=== PATIENT | female | born 1955 | race Caucasian/White ===

== ENCOUNTER 2017-05-29 13:04 | Inpatient (IN) | payer MEDICAID, MEDICARE ==
[~2017-05-29] VITALS: Ht 162.6 cm; Wt 65.8 kg
[2017-05-29] MEDS ORDERED: LEVE500T20 PO (13:17)
[2017-05-29] MEDS ORDERED: OLAN5TAB30 PO (13:17)
[2017-05-29] MEDS ORDERED: CARB-35 PO (13:17)
[2017-05-29] MEDS ORDERED: TEMA7.5C2 PO (13:17)
[2017-05-29] MEDS ORDERED: ACET325T53 PO (13:17)
[2017-05-29] MEDS ORDERED: MIRT15TA7 PO (13:17)
[2017-05-29] MEDS ORDERED: MULT1TAB73 PO (13:17)
[2017-05-29] MEDS ORDERED: LORA1TAB PO (13:17)
[2017-05-29] MEDS ORDERED: HYDR-3974 PO (13:17)
[2017-05-29] MEDS ORDERED: ONDA4TAB10 PO (13:17)
[2017-05-29] MEDS ORDERED: FAMO-132 PO (13:17)
--- NOTE | 2017-05-29 13:28 | NUR ---
PT IS IN ROOM #2B. DR PALMA EVALUATED THE PT.
[2017-05-29 14:32] LABS: BASOPHILS % (AUTO) 0.5 % (0.0-2.0); EOSINOPHILS # (AUTO) 0.2 K/uL (0.0-0.7); EOSINOPHILS % (AUTO) 2.9 % (0.0-7.0); HEMATOCRIT 32.5 % (37-47); HEMOGLOBIN 10.4 G/DL (12.0-16.0); LYMPHOCYTES # (AUTO) 1.6 K/UL (0.8-4.8); LYMPHOCYTES % (AUTO) 22.2 % (20.5-51.5); MEAN CORPUSCULAR HEMOGLOBIN 24.6 UUG (27.0-31.0); MEAN CORPUSCULAR HGB CONC 32 g/dL (32.0-37.0); MEAN CORPUSCULAR VOLUME 77.1 FL (81.0-99.0); MONOCYTES # (AUTO) 0.4 K/UL (0.1-1.30); MONOCYTES % (AUTO) 5.3 % (0.0-11.0); NEUTROPHILS # (AUTO) 5.1 K/UL (1.8-8.9); NEUTROPHILS % (AUTO) 69.1 % (38.5-71.5); PLATELET COUNT (AUTO) 415 K/UL (150-450); RED BLOOD CELL COUNT(AUTO) 4.21 MIL/UL (4.2-5.4); WHITE BLOOD COUNT (AUTO) 7.3 K/UL (4.0-11.2)
[2017-05-29 14:35] LABS: CREATININE 0.6 mg/dL (0.6-1.3); POTASSIUM 4.1 mmol/L (3.5-5.1)
[2017-05-29 14:42] LABS: BILIRUBIN,TOTAL 0.4 mg/dL (0.2-1.0); TOTAL PROTEIN, SERUM 7.1 g/dL (6.4-8.2)
[2017-05-29 15:04] LABS: THYROID STIMULATING HORMONE 1.004 mIU/mL (0.358-3.740)
[2017-05-29] MEDS ORDERED: LORAZEPAM 0.5 MG TABLET PO ONE (15:30)
[2017-05-29] MEDS ORDERED: CLINDAMYCIN PHOSPHATE IV 300 MG in IV DEXTROSE 5% 100 ML IV ONE (15:47)
[2017-05-29] MEDS ORDERED: LORAZEPAM 1 MG TABLET ONE (15:47)
[2017-05-29] MEDS ORDERED: CLINDAMYCIN PHOSPHATE 600 MG/4 ML VIAL ONE (16:08)
--- NOTE | 2017-05-29 18:14 | NUR ---
DR BIRD WAS CALLED. DR HINES DX BOARD OPERATOR. WAITING FOR HIS CALL BACK.
--- NOTE | 2017-05-29 18:56 | NUR ---
DR HINES TALKED TO DR TAMEZ. PT IS GOING TO BE ADMITTED TO M/S .
--- NOTE | 2017-05-29 18:58 | NUR ---
REPORT GIVEN TO HEAVY CLEANER RN.
--- NOTE | 2017-05-29 19:10 | NUR ---
REPORT RECEIVED FROM DAYSHIFT NURSE, PT RESTING IN BED, ALERT, ORIENTED X 2-3, NO RESP DISTRESS NOTED OR REPORTED UPON ASSESSMENT... WILL MONITOR FOR SAFETY, COMFORT, AND PAIN...
--- NOTE | 2017-05-29 19:56 | NUR ---
Pt. admitted to MED SURG , under care of Dr. Pak, [place] List completed, pt is alert, oriented x 2-3, no resp distress noted or reported upon transfer assessment...
--- NOTE | 2017-05-29 20:20 | NUR ---
PT RECEIVED FROM ED VIA [employer] Y[employer]. A/OX2. PT ORIENTED TO ROOM. V/S STABLE. NO ACUTE DISTRESS NOTED. NO COMPLAINTS OF PAIN AT THIS TIME. BED ALARM SET. SAFETY MEASURES IMPLEMENTED. CALL LIGHT WITHIN REACH. WILL CONTINUE TO MONITOR.
[2017-05-29] MEDS ORDERED: TEMAZEPAM 7.5 MG CAPSULE PO PRN (22:15)
[2017-05-29] MEDS ORDERED: LORAZEPAM 1 MG TABLET PO PRN (22:15)
[2017-05-29] MEDS ORDERED: FAMOTIDINE 20 MG TABLET ONE (22:31)
[2017-05-29] MEDS ORDERED: LEVETIRACETAM 500 MG TABLET ONE (22:32)
[2017-05-29] MEDS ORDERED: HYDROCODONE/APAP 5-325MG TABLET ONE (22:32)
[2017-05-29] MEDS ORDERED: MIRTAZAPINE 15 MG TABLET ONE (22:33)
[2017-05-29] MEDS ORDERED: OLANZAPINE 5 MG TABLET ONE (22:34)
[2017-05-29] MEDS: FAMOTIDINE 20 MG TABLET PO SCH (22:35)
[2017-05-29] MEDS: OLANZAPINE 5 MG TABLET PO SCH (22:35)
[2017-05-29] MEDS: LEVETIRACETAM 500 MG TABLET PO SCH (22:36)
[2017-05-29] MEDS: HYDROCODONE/APAP 5-325MG TABLET PO PRN (22:36)
[2017-05-29] MEDS: MIRTAZAPINE 15 MG TABLET PO SCH (22:37)
[2017-05-29] MEDS: IV NS 1000 ML 1,000 ML IV PRN (23:28)
[2017-05-30 01:03] LABS: *BILIRUBIN,URIN NEGATIVE (NEGATIVE); *BLOOD, URINE Trace-lysed (NEGATIVE); *CLARITY,URINE CLOUDY (CLEAR); *COLOR,URINE YELLOW (YELLOW); *KETONES,URINE NEGATIVE (NEGATIVE); *PROTEIN,URINE 2+ (NEGATIVE); LEUKOCYTE ESTERASE ,URINE 3+ (NEGATIVE); NITRITE, URINE POSITIVE (NEGATIVE); UGLUCOSE NEGATIVE (NEGATIVE)
[2017-05-30 01:17] LABS: BACTERIA,URINE MANY /HPF (NONE SEEN); SQUAMOUS EPITHELIAL CELL,UR MODERATE /HPF (NONE SEEN); WBC,URINE TNTC /HPF (0-3)
--- NOTE | 2017-05-30 06:16 | NUR ---
END OF SHIFT NOTES. PT SLEPT INTERMITTENTLY THROUGHOUT SHIFT. V/S STABLE. NO ACUTE DISTRESS NOTED. PT COMPLAINTS OF LOWER BACK PAIN. ADMINISTERED PAIN MEDICATIONS ORDERED. PT REMAINS NPO AFTER MIDNIGHT. PRE-OP CHECKLIST COMPLETE. PT PRE-OP CLEANING PREP COMPLETE. IVF INFUSING. NEEDS ATTENDED. SAFETY MAINTAINED. CALL LIGHT WITHIN REACH.
[2017-05-30 06:27] VITALS: BP 145/74
[2017-05-30 06:30] LABS: CREATININE 0.6 mg/dL (0.6-1.3); MAGNESIUM 1.7 mg/dL (1.8-2.4); PHOSPHOROUS 3.4 mg/dL (2.5-4.9); POTASSIUM 3.5 mmol/L (3.5-5.1)
[2017-05-30 06:50] LABS: BASOPHILS % (AUTO) 0.5 % (0.0-2.0); EOSINOPHILS # (AUTO) 0.3 K/uL (0.0-0.7); EOSINOPHILS % (AUTO) 4.7 % (0.0-7.0); HEMOGLOBIN 9.5 G/DL (12.0-16.0); LYMPHOCYTES # (AUTO) 2.2 K/UL (0.8-4.8); LYMPHOCYTES % (AUTO) 30.9 % (20.5-51.5); MEAN CORPUSCULAR HEMOGLOBIN 25.1 UUG (27.0-31.0); MEAN CORPUSCULAR HGB CONC 33 g/dL (32.0-37.0); MEAN CORPUSCULAR VOLUME 77.1 FL (81.0-99.0); MONOCYTES # (AUTO) 0.5 K/UL (0.1-1.30); MONOCYTES % (AUTO) 7.3 % (0.0-11.0); NEUTROPHILS # (AUTO) 4.3 K/UL (1.8-8.9); NEUTROPHILS % (AUTO) 56.6 % (38.5-71.5); PLATELET COUNT (AUTO) 394 K/UL (150-450); WHITE BLOOD COUNT (AUTO) 7.3 K/UL (4.0-11.2)
[2017-05-30 06:59] LABS: RED BLOOD CELL COUNT(AUTO) 3.78 MIL/UL (4.2-5.4)
[2017-05-30 07:00] LABS: HEMATOCRIT 29.2 % (37-47)
[2017-05-30] MEDS ORDERED: LORAZEPAM 1 MG TABLET PO PRN (07:30)
[2017-05-30] MEDS ORDERED: HYDROCODONE/APAP 5-325MG TABLET PO PRN (07:30)
[2017-05-30] MEDS ORDERED: ONDANSETRON HCL 4 MG TABLET PO PRN (07:30)
[2017-05-30] MEDS ORDERED: ACETAMINOPHEN 325 MG TABLET PO PRN (07:30)
[2017-05-30] MEDS ORDERED: TEMAZEPAM 7.5 MG CAPSULE PO PRN (07:30)
--- NOTE | 2017-05-30 07:30 | NUR ---
ON BED, RESTING. SLEEPING COMFORTABLE. NO DISCOMFORT NOTED.
[2017-05-30 08:45] VITALS: BP 132/76
[2017-05-30] MEDS ORDERED: LEVETIRACETAM 500 MG TABLET PO SCH (09:00)
[2017-05-30] MEDS ORDERED: FAMOTIDINE 20 MG TABLET PO SCH (09:00)
[2017-05-30] MEDS ORDERED: CARBIDOPA/LEVODOPA 25-100MG TAB.RAPDIS PO SCH (09:00)
[2017-05-30] MEDS ORDERED: OLANZAPINE 5 MG TABLET PO SCH (09:00)
[2017-05-30] MEDS ORDERED: POLYMYXIN B SULFATE 500,000 UNITS, BACITRACIN 50,000 UNITS, NORMAL SALINE 20 ML MC ONE ×3 (09:00)
--- NOTE | 2017-05-30 09:15 | NUR ---
TO OR VIA BED. COMFORTABLE, NO DISTRESS NOTED.
--- NOTE | 2017-05-30 09:30 | NUR ---
This legal advisor was unable to successfully contact the facility where the patient came from [[facility] [phone]]. The patient doesn't have any contact information. CM/CLAIRE to follow up.
[2017-05-30] MEDS ORDERED: CLINDAMYCIN PHOSPHATE 600 MG/4 ML VIAL ONE (09:45)
[2017-05-30] MEDS ORDERED: MAGNESIUM OXIDE 400 MG TABLET PO ONE ×2 (10:15)
[2017-05-30] MEDS ORDERED: FENTANYL CITRATE 100 MCG/2 ML AMPUL ONE (10:44)
[2017-05-30] MEDS ORDERED: ONDANSETRON 4 MG/2 ML VIAL IV ONE (11:18)
[2017-05-30] MEDS ORDERED: SEVOFLURANE 250 ML BOTTLE IH ONE (11:18)
[2017-05-30] MEDS ORDERED: IV NORMAL SALINE 1000 ML BAG IV ONE (11:18)
[2017-05-30] MEDS ORDERED: DEXAMETHASONE SOD PHOSPHATE 4 MG INJ IV ONE (11:18)
[2017-05-30] MEDS ORDERED: LIDOCAINE HCL 1% 20 ML VIAL MC ONE (11:18)
[2017-05-30] MEDS ORDERED: PROPOFOL 200 MG/20 ML BOTTLE IV ONE (11:18)
[2017-05-30] MEDS ORDERED: CLINDAMYCIN PHOSPHATE 600 MG/4 ML VIAL IV ONE (11:21)
[2017-05-30 12:30] VITALS: BP 98/63
--- NOTE | 2017-05-30 12:30 | NUR ---
received patient from or. awake . alert to name and pain of mild pain verbalized. right hip dressing in place.good pulse right ankle. hua catheter in remains in place, clear yellow with white threads noted. call light in reach.
[2017-05-30] MEDS: FAMOTIDINE 20 MG TABLET PO SCH ×2 (13:01→21:39)
[2017-05-30] MEDS: LEVETIRACETAM 500 MG TABLET PO SCH ×2 (13:01→21:38)
[2017-05-30] MEDS: MULTIVITAMINS,THERAPEUTIC TABLET PO SCH (13:02)
[2017-05-30] MEDS: ACETAMINOPHEN 325 MG TABLET PO PRN (13:02)
[2017-05-30] MEDS: OLANZAPINE 5 MG TABLET PO SCH ×2 (13:03→21:41)
[2017-05-30] MEDS: LEVOFLOXACIN 500 MG/D5W 500 MG in PREMIXED 1 EACH IV SCH (13:04)
[2017-05-30] MEDS: CARBIDOPA/LEVODOPA 25-100MG TABLET PO SCH ×2 (13:28→21:38)
[2017-05-30 16:09] VITALS: BP 124/76
--- NOTE | 2017-05-30 16:26 | NUR ---
Brief Nutrition Note RN Trupti stated that pt had no teeth, was unable to chew food effectively on regular texture diet. D/w RN regarding downgrading diet to chopped fine to increase po intake, RN agreed. RD to downgrade diet in [employer] to accommodate request. Full assessment to be completed per nutrition prioritization guidelines. Addendum: 05/30/17 at [address] Amended: Links added.
--- NOTE | 2017-05-30 17:04 | NUR ---
held jezrexa for now, just recieved late after surgery
[2017-05-30] MEDS: CLINDAMYCIN PHOSPHATE IV 600 MG in IV DEXTROSE 5% 100 ML IV SCH (17:51)
[2017-05-30] MEDS: IV NS 1000 ML 1,000 ML IV PRN (17:52)
--- NOTE | 2017-05-30 18:08 | NUR ---
appetite fair, taking fluids well. calm. dressing unchanged.
--- NOTE | 2017-05-30 19:00 | NUR ---
Bedside reporting with JAYSON Lyles. Patient sleeping during initial rounds. Right hip dressing dry and intact. safety measures and fall precaution maintained. Continue care as planned.
[2017-05-30] MEDS: HYDROCODONE/APAP 5-325MG TABLET PO PRN ×4 (19:36→19:39)
[2017-05-30 20:00] VITALS: BP 115/78
[2017-05-30] MEDS ORDERED: MIRTAZAPINE 15 MG TABLET PO SCH (21:00)
[2017-05-30] MEDS: MIRTAZAPINE 15 MG TABLET PO SCH (21:39)
[2017-05-31] MEDS: CLINDAMYCIN PHOSPHATE IV 600 MG in IV DEXTROSE 5% 100 ML IV SCH (02:27)
[2017-05-31 04:00] VITALS: BP 102/58
[2017-05-31 06:33] LABS: CREATININE 0.5 mg/dL (0.6-1.3); MAGNESIUM 1.8 mg/dL (1.8-2.4)
--- NOTE | 2017-05-31 06:51 | NUR ---
Slept well. No complaint presented all night. Turned and repositioned for comfort. Dressing on right hip dry and intact. All needs attended and met. Continue care as planned.
--- NOTE | 2017-05-31 07:07 | NUR ---
Bedside reporting with JAYSON Palomo
--- NOTE | 2017-05-31 08:10 | NUR ---
RECEIVED PATIENT ASLEEP EASILY AROUSABLE ON ROUNDS DENIES PAIN OR DISCOMFORTS AT THIS TIME.REMAIN ON IVF ORDERED WITH NO S/S OF INFILTERATION ALERT AND OBEYS COMMAND ASSISTED WITH BREAKFAST WITH JUST FAIR APPETITE.RIGHT HIP WITH DRESSING DRY AND INTACT WITH NO DRAINAGE AT THIS TIME.NO SEIZURE ACTIVITIES NOTED.
[2017-05-31] MEDS: FAMOTIDINE 20 MG TABLET PO SCH ×2 (08:37→20:32)
[2017-05-31] MEDS: OLANZAPINE 5 MG TABLET PO SCH ×2 (08:37→16:20)
[2017-05-31] MEDS: CARBIDOPA/LEVODOPA 25-100MG TABLET PO SCH ×2 (08:37→20:32)
[2017-05-31] MEDS: LEVETIRACETAM 500 MG TABLET PO SCH ×2 (08:37→20:32)
[2017-05-31] MEDS: MULTIVITAMINS,THERAPEUTIC TABLET PO SCH (11:18)
[2017-05-31 12:16] VITALS: BP 133/58
[2017-05-31] MEDS: LEVOFLOXACIN 500 MG/D5W 500 MG in PREMIXED 1 EACH IV SCH (13:16)
--- NOTE | 2017-05-31 13:46 | NUR ---
DR BLACKMAN HERE TO SEE PATIENT WITH NO NEW ORDERS AT THIS TIME.
[2017-05-31 16:06] VITALS: BP 126/56
[2017-05-31] MEDS: IV NS 1000 ML 1,000 ML IV PRN (16:19)
--- NOTE | 2017-05-31 19:30 | NUR ---
RECEIVED PATIENT LAYING IN BED COMFORTABLY. HOB ELEVATED. SAFETY INITIATED. CALL LIGHT WITHIN REACH. WILL CONTINUE TO MONITOR.
[2017-05-31 20:00] VITALS: BP 126/51
[2017-05-31] MEDS: MIRTAZAPINE 15 MG TABLET PO SCH (20:33)
--- NOTE | 2017-06-01 07:06 | NUR ---
NO CHANGES NOTED T/O SHIFT. NO ACUTE DISTRESS NOTED. HEIN CARE PROVIDED. ALL SAFETY AND COMFORT MEASRES MAINTAINED T/O SHIFT. CALL LIGHT WITHIN REACH. ALL NEEDS MET.
--- NOTE | 2017-06-01 08:12 | NUR ---
RECEIVED IN BED AWAKE ALERT DENIES PAIN OR DISCOMFORTS AT THIS TIME PATIENT EDUCATED ON CALLING FOR A BED NATION IN CASE SHE WANTS TO URINATE DUE TO HEIN REMOVED THIS AM.REMAIN ON IVF ORDERED WITH NO S/S OF INFILTERATION ON SITE.RIGHT HIP WITH DRESSING DRY AND INTACT MADE COMFORTABLE NOT IN DISTRESS AT THIS TIME.AWAITING FOR PHYSICAL THERAPY EVALUATION AT THIS TIME.
[2017-06-01] MEDS: CARBIDOPA/LEVODOPA 25-100MG TABLET PO SCH ×2 (08:56→20:42)
[2017-06-01] MEDS: OLANZAPINE 5 MG TABLET PO SCH ×2 (08:56→16:28)
[2017-06-01] MEDS: LEVETIRACETAM 500 MG TABLET PO SCH ×2 (08:56→20:42)
[2017-06-01] MEDS: FAMOTIDINE 20 MG TABLET PO SCH ×2 (09:00→20:42)
[2017-06-01 11:12] VITALS: BP 100/42
[2017-06-01] MEDS: MULTIVITAMINS,THERAPEUTIC TABLET PO SCH (11:38)
--- NOTE | 2017-06-01 12:00 | NUR ---
DR BLACKMAN HERE TO SEE PATIENT AND I INFORMED HIM THAT PATIENT MAY BE DISCHARGED TO THE HALFWAY TODAY AND I ASKED HIM IF I SHOULD CHANGE THE DRESSING ON THE RIGHT HIP OF THIS PATIENT AND HE STATED NO JUST LEAVE IT ALONE AND THAT THE PATIENT SHOULD FOLLOW UP WITH HIM TWO WEEKS POST OP.
[2017-06-01] MEDS: IV NS 1000 ML 1,000 ML IV PRN (13:10)
--- NOTE | 2017-06-01 14:00 | NUR ---
PATIENT IS INCONTINENT OF URINE STRAIGHT CATH FOR URINE SPECIMEN ORDERED AND SENT TO THE LAB.
[2017-06-01 15:26] VITALS: BP 102/56
--- NOTE | 2017-06-01 17:10 | NUR ---
RESTING IN BED VOIDING PATIENT WAS SEEN BY THE PHYSICAL THERAPIST FOR AMBULATION ORDERED WITH POOR ENDURANCE.PATIENT HAS ADVANCED OSTEOARTHRITIS STATED UNABLE TO AMBULATE AT THIS TIME.DR BLACKMAN AWARE THAT PATIENT IS UNABLE TO AMBULATE AT THIS TIME.
--- NOTE | 2017-06-01 18:30 | NUR ---
RESTING TOLERATING HER ORAL FLUIDS INCLUDING HER BOOST BUT FOOD INTAKE HAS BEEN POOR.
--- NOTE | 2017-06-01 19:00 | NUR ---
RECEIVED PATIENT IN BED, NO SOB NO CHEST PAIN NOTED, R HIP DRESSING INTACT, NO COUGHING NOTED, NO CONGESTION NOTED, TURN AND REPOSITION, KEPT COMFORTABLE.
[2017-06-01 20:40] VITALS: BP 106/68
[2017-06-01] MEDS: MIRTAZAPINE 15 MG TABLET PO SCH (20:42)
[2017-06-02] MEDS ORDERED: LORAZEPAM 1 MG TABLET ONE (00:03)
[2017-06-02 04:00] VITALS: BP 123/64
--- NOTE | 2017-06-02 05:20 | NUR ---
PATIENT SLEPT MOST OF THE NIGHT, NO SOB NO CHEST PAIN NOTED, NO COMPLAIN OF PAIN AT THIS TIME, R HIP DRESSING INTACT, PATIENT VOIDING WELL, KEPT CLEAN AND DRY, CONT TO MONITOR.
--- NOTE | 2017-06-02 06:25 | NUR ---
PATIENT NOTED WITH R HEEL BLISTER SIZE 1.5 X 6 CM, KEPT HEEL ELEVATED WITH PILLOW, TURN AND REPOSITION, KEPT SITE CLEAN AND DRY.
--- NOTE | 2017-06-02 06:49 | NUR ---
PATIENT IS FOR WOUND CONSULT OF Mary Anne ECHAVARRIA.
--- NOTE | 2017-06-02 07:48 | NUR ---
RECEIVED IN BED AWAKE ALERT WITH CONFUSSION MAKES SIMPLE NEEDS KNOWN TOTALLY DEPENDENT FOR ALL ADL TURNED AND REPOSITIONED Q2H FOR COMFORT HEELS FLOATED ON THE PILLOW.REMAIN ON IVF ORDERED MADE COMFORTABLE WITH NO DISTRESS AT THIS TIME.
[2017-06-02] MEDS: FAMOTIDINE 20 MG TABLET PO SCH ×2 (08:58→20:26)
[2017-06-02] MEDS: LEVETIRACETAM 500 MG TABLET PO SCH ×2 (08:58→20:26)
[2017-06-02] MEDS: OLANZAPINE 5 MG TABLET PO SCH ×2 (08:58→16:18)
[2017-06-02] MEDS: CARBIDOPA/LEVODOPA 25-100MG TABLET PO SCH ×2 (08:58→20:26)
[2017-06-02] MEDS: IV NS 1000 ML 1,000 ML IV PRN (09:40)
--- NOTE | 2017-06-02 09:55 | NUR ---
RIGHT HEEL BLISTER WITH MINIMAL AMOUNT OF FLUID PURPLE IN COLOR AND INTACT WITH NO DRAINAGE AT THIS TIME.WE ARE CONTINUING TO FLOAT HEELS BUT PATIENT PROMPTLY FLEXES HER LEGS SHE HAS ADVANCED OSTEOARTHRITIS STATES TOO UNCOMFORTABLE TO EXTEND HER LEGS. WILL CONTINUE TO OBSERVE REPOSITION AND MONITOR PATIENT.
[2017-06-02] MEDS: MULTIVITAMINS,THERAPEUTIC TABLET PO SCH (11:10)
[2017-06-02 11:30] VITALS: BP 98/56
[2017-06-02] MEDS: HYDROCODONE/APAP 5-325MG TABLET PO PRN (12:18)
--- NOTE | 2017-06-02 13:58 | NUR ---
PATIENT SEEN AND EXAMINED BY DR GALLARDO WITH ORDERS FOR ABS IN AM AND NOTED.
[2017-06-02 15:25] VITALS: BP 94/56
--- NOTE | 2017-06-02 16:51 | NUR ---
RESTING IN BED ASSISTED WITH REPOSITIONING PATIENT LOWER EXT FLEXES EASILY DUE TO ADVANCED OSTEOARTHRITIS HEELS FLOATED AND MADE COMFORTABLE.
--- NOTE | 2017-06-02 18:00 | NUR ---
RESTING CONTINUE TO ATTEMPT TO REPOSITION PATIENT BUT SHE CONTINUES TO PULL HER LEGS UP IN FLEXED POSITION PILLOWS USES TO FLOAT HEELS MUCH POSSIBLE.
--- NOTE | 2017-06-02 19:00 | NUR ---
RECEIVED PATIENT IN BED, NO SOB NO CHEST PAIN NOTED, R HIP ORIF DRESSING INTACT, MAHOGANY HEEL ELEVATED WITH PILLOW, R HEEL BLISTER STILL INTACT, NO S/S OF DISTRESS.
[2017-06-02 20:00] VITALS: BP 94/57
[2017-06-02] MEDS: MIRTAZAPINE 15 MG TABLET PO SCH (20:58)
[2017-06-03] VITALS (17 sets, daily range): BP systolic 108–139; BP diastolic 50–78
--- NOTE | 2017-06-03 00:25 | NUR ---
PATIENT HAS EPISODE OF VOMITTING, WITH MODERATE AMOUNT OF CLEAR LIQUID FLUID WITH UNDIGESTED FOOD, APPROX 300CC, NO FURTHER EPISODE OF VOMITTING AFTER ONE EPISODES. CONT TO MONITOR.
[2017-06-03] MEDS: IV NS 1000 ML 1,000 ML IV PRN (05:58)
[2017-06-03 06:41] LABS: BASOPHILS % (AUTO) 0.3 % (0.0-2.0); EOSINOPHILS # (AUTO) 0.3 K/uL (0.0-0.7); EOSINOPHILS % (AUTO) 3.3 % (0.0-7.0); LYMPHOCYTES # (AUTO) 1.5 K/UL (0.8-4.8); LYMPHOCYTES % (AUTO) 18.4 % (20.5-51.5); MEAN CORPUSCULAR HEMOGLOBIN 24.8 UUG (27.0-31.0); MEAN CORPUSCULAR HGB CONC 32 g/dL (32.0-37.0); MEAN CORPUSCULAR VOLUME 77.3 FL (81.0-99.0); MONOCYTES # (AUTO) 0.5 K/UL (0.1-1.30); MONOCYTES % (AUTO) 5.6 % (0.0-11.0); NEUTROPHILS # (AUTO) 5.8 K/UL (1.8-8.9); NEUTROPHILS % (AUTO) 72.4 % (38.5-71.5); PLATELET COUNT (AUTO) 265 K/UL (150-450); RED BLOOD CELL COUNT(AUTO) 2.58 MIL/UL (4.2-5.4); WHITE BLOOD COUNT (AUTO) 8.1 K/UL (4.0-11.2)
[2017-06-03 06:46] LABS: HEMATOCRIT 19.9 % (37-47); HEMOGLOBIN 6.4 G/DL (12.0-16.0)
[2017-06-03 06:51] LABS: BILIRUBIN,TOTAL 0.4 mg/dL (0.2-1.0); CREATININE 0.5 mg/dL (0.6-1.3); MAGNESIUM 1.9 mg/dL (1.8-2.4); PHOSPHOROUS 3.9 mg/dL (2.5-4.9); POTASSIUM 4.1 mmol/L (3.5-5.1); TOTAL PROTEIN, SERUM 5.5 g/dL (6.4-8.2)
--- NOTE | 2017-06-03 07:05 | NUR ---
LAB REPORT OF HGH 6.4, HCT 19.[address] ROBERTS AND SAID WAIT FOR TWO HOURS AND WILL COORDINATE WITH CATEGORY DEVELOPMENT MANAGER TO CARE FOR THE PATIENT.
--- NOTE | 2017-06-03 07:30 | NUR ---
PAGE DR VINCE Farris FOR LAB RESULT OF HGB AND HCT NO RESPOND YET, ENDORSED TO RAKEL TYLER TO FOLLOW UP.
[2017-06-03 07:42] LABS: EOSINOPHILS % (MANUAL) 2 % (0-8); LYMPHOCYTES % (MANUAL) 17 % (20-40); MONOCYTES % (MANUAL) 3 % (2-10); NEUTROPHILS % (MANUAL) 78 % (42-75)
--- NOTE | 2017-06-03 08:00 | NUR ---
DR GALLARDO NOTIFIED OF LOW HH WITH ORDERS, PT ASYMPTOMATIC, DENIES PAIN OR SIGNS OF DISTRESS
[2017-06-03] MEDS: OLANZAPINE 5 MG TABLET PO SCH ×2 (08:37→17:26)
[2017-06-03] MEDS: CARBIDOPA/LEVODOPA 25-100MG TABLET PO SCH ×2 (08:37→20:18)
[2017-06-03] MEDS: FAMOTIDINE 20 MG TABLET PO SCH ×2 (08:37→20:18)
[2017-06-03] MEDS: LEVETIRACETAM 500 MG TABLET PO SCH ×2 (08:37→20:18)
--- NOTE | 2017-06-03 10:00 | NUR ---
MIDLINE INSERTED WITHOUT ANY SIGNS OF BLEEDING DAYNE
--- NOTE | 2017-06-03 11:00 | NUR ---
no next of kin available, dr soliz in and signed consent for blood transfusion
[2017-06-03] MEDS: MULTIVITAMINS,THERAPEUTIC TABLET PO SCH (11:22)
--- NOTE | 2017-06-03 14:16 | NUR ---
blood transfusion started
--- NOTE | 2017-06-03 14:30 | NUR ---
no reaction from blood transfusion
--- NOTE | 2017-06-03 17:39 | NUR ---
BLOOD TRANSFUSION COMPLETED WITHOUT REACTION.
--- NOTE | 2017-06-03 19:00 | NUR ---
RECEIVED PATIENT IN BED, BLOOD TRANSFUSION IN PROGRESS, NO SOB NO COUGHING NOTED, NO ASE NOTED, TURN AND REPOSIITON, KEPT CLEAN AND DRY, NO COMPLAIN OF PAIN AT THIS TIME. CALL LIGHT WITHIN REACH.
[2017-06-03] MEDS: MIRTAZAPINE 15 MG TABLET PO SCH (20:18)
--- NOTE | 2017-06-03 22:02 | NUR ---
TRASNFUSION COMPLETED WITHOUT REACTIONS.
[2017-06-04] MEDS: ACETAMINOPHEN 325 MG TABLET PO PRN ×2 (02:05→19:37)
--- NOTE | 2017-06-04 04:36 | NUR ---
PATIENT SLEPT MOST OF THE NIGHT, NO SOB NO CHEST PAIN NOTED, NO COUGHING NOTED, TURN AND REPOSITION KEPT CLEAN AND DRY, HEELS OFF LOADED WITH PILLOW, R HIP DRESSING INTACT, KEPT ORIG DRESSING ORDERED BY SURGEON, NO S/S OF DISTRESS.
[2017-06-04 06:50] VITALS: BP 125/75
[2017-06-04 06:58] LABS: BASOPHILS # (AUTO) 0.1 K/uL (0.0-8.0); BASOPHILS % (AUTO) 1.1 % (0.0-2.0); EOSINOPHILS # (AUTO) 0.4 K/uL (0.0-0.7); EOSINOPHILS % (AUTO) 4.5 % (0.0-7.0); HEMATOCRIT 29.3 % (37-47); HEMOGLOBIN 9.7 G/DL (12.0-16.0); LYMPHOCYTES # (AUTO) 1.8 K/UL (0.8-4.8); LYMPHOCYTES % (AUTO) 19.7 % (20.5-51.5); MEAN CORPUSCULAR HEMOGLOBIN 26.6 UUG (27.0-31.0); MEAN CORPUSCULAR HGB CONC 33 g/dL (32.0-37.0); MEAN CORPUSCULAR VOLUME 80.6 FL (81.0-99.0); MONOCYTES # (AUTO) 0.5 K/UL (0.1-1.30); MONOCYTES % (AUTO) 5.1 % (0.0-11.0); NEUTROPHILS # (AUTO) 6.1 K/UL (1.8-8.9); NEUTROPHILS % (AUTO) 69.6 % (38.5-71.5); PLATELET COUNT (AUTO) 254 K/UL (150-450); RED BLOOD CELL COUNT(AUTO) 3.64 MIL/UL (4.2-5.4); WHITE BLOOD COUNT (AUTO) 8.9 K/UL (4.0-11.2)
[2017-06-04 08:04] LABS: BILIRUBIN,TOTAL 0.7 mg/dL (0.2-1.0); CREATININE 0.6 mg/dL (0.6-1.3); MAGNESIUM 1.9 mg/dL (1.8-2.4); PHOSPHOROUS 3.9 mg/dL (2.5-4.9); POTASSIUM 4.2 mmol/L (3.5-5.1); TOTAL PROTEIN, SERUM 5.9 g/dL (6.4-8.2)
--- NOTE | 2017-06-04 08:59 | NUR ---
WOUND CARE CONSULT PATIENT SEEN AND SKIN INTEGRITY ASSESSMENT DONE. PLEASE SEE MENTAL HEALTH TECHNICIAN ASSESSMENT IN PCS FOR TODAY. DISCUSSED TREATMENT PLANS WITH MD AND MD IN AGREEMENT. PATIENT NOTED TO HAVE SEVERE FOOT DEFORMITY BILATERALLY AND TENDS TO FLEX HER LEGS UP TOWARDS HER BODY AND OFFLOADING/FLOATING IS VERY DIFFICULT. PATIENT DOES NOT LIKE HER LEGS TO BE EXTENDED. WOUND CARE WILL DEFER THE RIGHT HIP POST OP SITE TO [facility] FOR TREATMENT AT THIS TIME. PER NURSING STAFF [facility]TH[facility] MD SAID TO LEAVE THE DRESSING ALONE AND PATIENT TO FOLLOW UP WITH [facility] MD IN 2 WEEKS. PATIENT WITH CURRENT EWA AT 14. ALL SKIN MANAGEMENT AND PREVENTION MEASURES NOTED TO BE IN PLACE. ALL DISCUSSED WITH NURSING AT THE BEDSIDE. PATIENT NOTED TO HAVE LONG HARD THICKENED TOENAILS AND A DRY CALLUS TO THE RIGHT PLANTAR FOOT. ALSO PATIENT NOTED TO HAVE A DRY SCABBED LESION TO THE RIGHT DORSAL FOOT, RECOMMENDED TO KEEP OPEN TO AIR. CONTINUE USE OF Z GUARD FOR SKIN/MOISTURE MANAGEMENT. MD IN AGREEMENT WITH PLAN OF CARE. Addendum: 06/04/17 at 0905 by SOSA RICO WNDNU Amended: Links added.
[2017-06-04] MEDS: CARBIDOPA/LEVODOPA 25-100MG TABLET PO SCH ×2 (09:27→20:22)
[2017-06-04] MEDS: LEVETIRACETAM 500 MG TABLET PO SCH ×2 (09:27→20:23)
[2017-06-04] MEDS: FAMOTIDINE 20 MG TABLET PO SCH ×2 (09:27→20:22)
[2017-06-04] MEDS: OLANZAPINE 5 MG TABLET PO SCH ×2 (09:27→19:37)
[2017-06-04 11:55] VITALS: BP 131/81
[2017-06-04] MEDS: MULTIVITAMINS,THERAPEUTIC TABLET PO SCH (11:57)
[2017-06-04 16:35] VITALS: BP 126/78
--- NOTE | 2017-06-04 16:40 | NUR ---
Dr. Willingham ordered for a discharge to [facility] under hospice care but Pat from [facility] called and stated they were not able to acquire authorization from the insurance company because they are [id number]. She had been in contact with Kelin, Developmental Therapist of [facility] [ ; ; [address] [place] [address]] and [facility] prefers for their resident to return to their facility under hospice care. They also requested to use [facility] [ ; ]. Spoke to Maris, sales and marketing administrator of [facility] and she is trying to get authorization from [facility] [ ext.[phone]; Contact - Michelle; ]. Provided her with the RN station phone number and she will call the station once she gets authorization. Updated the charge loader, Vivian, on the case.
[2017-06-04 19:21] VITALS: BP 119/75
[2017-06-04 19:36] VITALS: BP 119/75
[2017-06-04] MEDS: MIRTAZAPINE 15 MG TABLET PO SCH (20:22)
--- NOTE | 2017-06-04 22:00 | NUR ---
Awake in bed no SOB denies chest pain. Still c/o right hip discomfort, Tylenol 650mg p.o given. Patient tolerated night meds w/ vanilla pudding. Vital signs are WNL. Will continue to monitor.
--- NOTE | 2017-06-04 23:00 | NUR ---
Prune juice provided for constipation issue. Patient tolerated.
[2017-06-05 04:00] VITALS: BP 140/68
--- NOTE | 2017-06-05 05:00 | NUR ---
Patient had moderate soft BM, incontinence care provided. Kept comfortable.
[2017-06-05] MEDS: LEVETIRACETAM 500 MG TABLET PO SCH (08:16)
[2017-06-05] MEDS: OLANZAPINE 5 MG TABLET PO SCH ×2 (08:16→16:29)
[2017-06-05] MEDS: FAMOTIDINE 20 MG TABLET PO SCH (08:16)
[2017-06-05] MEDS: CARBIDOPA/LEVODOPA 25-100MG TABLET PO SCH (08:16)
[2017-06-05 11:06] VITALS: BP 130/65
[2017-06-05] MEDS: MULTIVITAMINS,THERAPEUTIC TABLET PO SCH (12:20)
--- NOTE | 2017-06-05 14:14 | NUR ---
The patient will be discharged today back to [facility] [ ; ; [address] [place] [address]]. 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 Also spoke to Michelle from [facility] [ ext.[phone]; ] and she confirmed that they authorized for [facility]. Her RN, Georgette, is aware of her discharge plan.
[2017-06-05 15:09] VITALS: BP 114/63
--- NOTE | 2017-06-05 16:45 | NUR ---
Pt. tolerating diet well. Good appetite. Denies pain and in no acute distress. Midline iv removed early afternoon and dressing c/d/i. Pt. informed of discharge to board and care. 1645 Pt. left unit via gurney for transport to [facility] w/belongings. Diapered. R/A. No IV access. Hip precautions.
== END 2017-06-05 16:45 | disposition hospice, inpatient (51) | DRG 308 ==
LOC: ER 13:04 → MED 19:03
PROVIDERS: ADMIT Orthopaedic Surgery Sports Medicine; ATTEND Internal Medicine
PROC: 0QS706Z Reposition Left Upper Femur with Intramedullary Internal Fixation Device, Open Approach (ICD-10-PCS; principal; 2017-05-30 09:30)
PROC: 05H533Z Insertion of Infusion Device into Right Subclavian Vein, Percutaneous Approach (ICD-10-PCS; 2017-06-03)
PROC: 30233N1 Transfusion of Nonautologous Red Blood Cells into Peripheral Vein, Percutaneous Approach (ICD-10-PCS; 2017-06-03)
DX: S72.141A Displaced intertrochanteric fracture of right femur, initial encounter for closed fracture (principal); G92 Toxic encephalopathy; L03.115 Cellulitis of right lower limb; N39.0 Urinary tract infection, site not specified; R62.7 Adult failure to thrive; G20 Parkinson's disease; S72.21XA Displaced subtrochanteric fracture of right femur, initial encounter for closed fracture; K21.9 Gastro-esophageal reflux disease without esophagitis; R32 Unspecified urinary incontinence; Z88.0 Allergy status to penicillin; M19.90 Unspecified osteoarthritis, unspecified site; D64.9 Anemia, unspecified; F20.9 Schizophrenia, unspecified; F39 Unspecified mood [affective] disorder; G40.909 Epilepsy, unspecified, not intractable, without status epilepticus; Z79.899 Other long term (current) drug therapy
CPT/HCPCS: 36415; 70030-TC; 71010; 73502; 73503; 76000; 83735; 84100; 84443; 85025; 85610; 86850; 86900; 86901; 86920; 87086; 93005; 97110; 97161; 97530; A4649; A4663; C1758; C1769; J1100; J1956; J2405; J3010; J3490; J7030; J7050; J7060; P9016-BL; P9021